=== PATIENT | female | born 1980 | race Caucasian/White ===

== ENCOUNTER 2016-10-09 22:40 | Emergency (ER) | payer BC, SELFPAY ==
[2016-10-09 23:38] LABS: ALT (SGPT) 22 U/L (0-55); AST (SGOT) 19 U/L (5-34); Albumin 4.5 g/dL (3.5-5.0); Alkaline Phosphatase 53 U/L (40-150); Anion Gap 9 mmol/L (10-20); BUN (Urea Nitrogen) 21 mg/dL (7.0-18.7); Bilirubin, Total 0.5 mg/dL (0.2-1.2); Calc. Creatinine Clearance 0 mL/min (70-130); Calcium 9.1 mg/dL (7.8-10.44); Carbon Dioxide 30 mmol/L (22-29); Chloride 106 mmol/L (98-107); Estimated GFR-MDRD 90; Globulin 2.3 g/dL (2.4-3.5); Glucose 80 mg/dL (70-105); Lipase 21 U/L (8-78); Potassium 3.4 mmol/L (3.5-5.1); Protein, Total 6.8 g/dL (6.0-8.3); Sodium 142 mmol/L (136-145)
[2016-10-09 23:39] LABS: Hemoglobin 13.5 g/dL (12.0-16.0); Lymphocytes 30 % (21-51); MDiff Complete? YES; Mean Corpuscular HGB CONC 31.8 g/dL (32.0-36.0); Mean Corpuscular Hemoglobin 28.2 pg (27.0-31.0); Mean Corpuscular Volume 88.5 fl (81.0-99.0); Mean Platelet Volume 7.7 fL (7.4-10.4); Monocytes 4 % (0-10); Neutrophil 65 % (42-75); PLT Morphology Comment Appears Adequate; Platelet Count 198 thou/uL (130-400); RBC Distribution Width 12.8 % (11.5-14.5); RBC Morphology Normal; White Blood Cell (WBC) Count 5.6 thou/uL (4.8-10.8)
[2016-10-09 23:40] LABS: CKMB 3.2 ng/mL (0-6.6); Troponin I Less than 0.010 ng/mL (< 0.028)
[2016-10-09] MEDS ORDERED: Ketorolac Tromethamine 30 MG/ML VIAL ONE (23:46)
--- NOTE | 2016-10-10 07:14 | RAD ---
PORTABLE CHEST: Date: 10/09/16 An AP portable film at 2253 hours is compared with the 10/19/15 study. FINDINGS: The heart is normal in size and the lungs are clear. No infiltrate or effusion seen. There is no vas cular congestion or edema. No pneumothorax seen. The mediastinum appears normal and the trachea is m idline. IMPRESSION: No acute thoracic findings. POS: HOME
== END 2016-10-10 00:30 | disposition home or self-care (01) ==
LOC: BURERS 22:40
DX: M94.0 Chondrocostal junction syndrome [Tietze] (principal); F31.9 Bipolar disorder, unspecified; F17.210 Nicotine dependence, cigarettes, uncomplicated; Z79.899 Other long term (current) drug therapy
CPT/HCPCS: 71010; 80053; 82553; 83690; 84484; 85025; 93005; 94760; 96374; J1885

== ENCOUNTER 2016-11-27 21:32 | Emergency (ER) | payer SELFPAY ==
[2016-11-27] MEDS ORDERED: Ketorolac Tromethamine 60 MG/2 ML VIAL ONE (22:12)
--- NOTE | 2016-11-27 22:39 | RAD ---
LEFT SHOULDER THREE VIEWS: 11/27/16 No fracture, dislocation or AC joint widening was seen. All bony structures appeared intact. IMPRESSION: No acute finding. POS: HOME
== END 2016-11-27 22:22 | disposition home or self-care (01) ==
LOC: BURERS 21:32
DX: M65.812 Other synovitis and tenosynovitis, left shoulder (principal); F31.9 Bipolar disorder, unspecified; F17.210 Nicotine dependence, cigarettes, uncomplicated
CPT/HCPCS: 96372; J1885

== ENCOUNTER 2017-09-14 14:06 | Emergency (ER) | payer SELFPAY ==
[2017-09-14] MEDS ORDERED: Adacel (T-DAP) 0.5 ML VIAL ONE (15:09)
--- NOTE | 2017-09-14 17:32 | RAD ---
LEFT HAND THREE VIEWS: 09/14/2017 There is a soft tissue defect at the tip of the third digit. No fracture or opaque foreign body was appreciated, however. The remainder of the hand and wrist appear intact. IMPRESSION: Soft tissue defect of the distal third finger. POS: HOME
== END 2017-09-14 15:15 | disposition home or self-care (01) ==
LOC: BURERS 14:06
DX: S61.213A Laceration without foreign body of left middle finger without damage to nail, initial encounter (principal); F17.210 Nicotine dependence, cigarettes, uncomplicated; F31.9 Bipolar disorder, unspecified; W22.8XXA Striking against or struck by other objects, initial encounter; Z79.899 Other long term (current) drug therapy
CPT/HCPCS: 64450; 90471; 90715

== ENCOUNTER 2018-05-15 03:40 | Emergency (ER) | payer SELFPAY ==
[2018-05-15] MEDS ORDERED: Ciprofloxacin 500 MG TAB ONE (04:12)
[2018-05-15] MEDS ORDERED: Dicyclomine 20 MG TAB ONE (04:12)
== END 2018-05-15 04:15 | disposition home or self-care (01) ==
LOC: BURERS 03:40
DX: R19.7 Diarrhea, unspecified (principal); F31.9 Bipolar disorder, unspecified; F17.210 Nicotine dependence, cigarettes, uncomplicated; Z79.899 Other long term (current) drug therapy
CPT/HCPCS: 99283

== ENCOUNTER 2018-12-24 13:32 | Emergency (ER) | payer SELFPAY ==
[2018-12-24] MEDS ORDERED: Famotidine 20 MG TAB ONE (13:45)
[2018-12-24] MEDS ORDERED: hydrOXYzine 25 MG TAB ONE (13:45)
[2018-12-24] MEDS ORDERED: Dexamethasone 4 MG TAB ONE (13:45)
== END 2018-12-24 13:52 | disposition home or self-care (01) ==
LOC: BURERS 13:32
DX: L23.7 Allergic contact dermatitis due to plants, except food (principal); F31.9 Bipolar disorder, unspecified; F17.210 Nicotine dependence, cigarettes, uncomplicated; Z79.899 Other long term (current) drug therapy
CPT/HCPCS: 99282; J8540

== ENCOUNTER 2021-04-03 13:00 | Emergency (ER) | payer OTHER, SELFPAY | END 2021-04-03 14:18 | disposition home or self-care (01) | LOC: BURERS 13:00 | DX: S50.02XA Contusion of left elbow, initial encounter (principal); M70.22 Olecranon bursitis, left elbow; F17.210 Nicotine dependence, cigarettes, uncomplicated; W22.8XXA Striking against or struck by other objects, initial encounter ==

== ENCOUNTER 2021-04-04 11:17 | Outpatient (CLI) | payer OTHER | END 2021-04-04 11:18 | disposition home or self-care (01) | LOC: BURLAB 11:17 | PROVIDERS: ATTEND Family Medicine | DX: Z02.89 Encounter for other administrative examinations (principal) | CPT/HCPCS: 99001 ==

== ENCOUNTER 2023-02-08 06:45 | Emergency (ER) | payer SELFPAY | END 2023-02-08 07:36 | disposition home or self-care (01) | LOC: BURERS 06:45 | DX: R19.7 Diarrhea, unspecified (principal); F17.210 Nicotine dependence, cigarettes, uncomplicated | CPT/HCPCS: 36416; 93005 ==

== ENCOUNTER 2023-02-22 19:08 | Emergency (ER) | payer SELFPAY ==
[2023-02-22 20:02] LABS: #Eosinphils 0.1 thou/uL (0.0-0.7); #Lymphocytes 1.2 thou/uL (1.20-3.40); #Monocytes 0.2 thou/uL (0.11-0.59); #Neutrophils 2.1 thou/uL (1.40-6.50); %Basophils 1.1 % (0.0-1.0); %Eosinophils 2.4 % (0.0-10.0); %Lymphocytes 33.3 % (21.0-51.0); %Monocytes 4.8 % (0.0-10.0); %Neutrophils 58.3 % (42.0-75.0); ALT (SGPT) 14 U/L (8-55); AST (SGOT) 12 U/L (5-34); Albumin 4.2 g/dL (3.5-5.0); Alkaline Phosphatase 51 U/L (40-110); Anion Gap 14 mmol/L (10-20); BUN (Urea Nitrogen) 13 mg/dL (7.0-18.7); Bilirubin, Total 0.7 mg/dL (0.2-1.2); Calc. Creatinine Clearance 0 mL/min (70-130); Calcium 8.9 mg/dL (7.8-10.44); Carbon Dioxide 23 mmol/L (22-29); Chloride 105 mmol/L (98-107); Estimated GFR 94; Glucose 97 mg/dL (70-105); Hematocrit 39.8 % (36.0-47.0); Hemoglobin 12.9 g/dL (12.0-16.0); Mean Corpuscular HGB CONC 32.4 g/dL (32.0-36.0); Mean Corpuscular Hemoglobin 27.2 pg (27.0-31.0); Mean Corpuscular Volume 84.1 fl (78.0-98.0); Mean Platelet Volume 7.5 fL (7.4-10.4); Platelet Count 195 10x3/uL (130-400); Potassium 3.9 mmol/L (3.5-5.1); Protein, Total 6.2 g/dL (6.0-8.3); RBC Distribution Width 11.6 % (11.5-14.5); Red Blood Cell (RBC) Count 4.74 mill/uL (4.20-5.40); Sodium 138 mmol/L (136-145); White Blood Cell (WBC) Count 3.6 10x3/uL (4.8-10.8)
[2023-02-22 20:14] LABS: Bilirubin Negative (Negative); Blood, Urine Negative (Negative); Clarity Clear (Clear); Glucose, Urine (Dipstick) Negative (Negative); Ketone, Urine Negative (Negative); Leukocyte Trace (Negative); Nitrite Negative (Negative); Protein, Urine (Dipstick) Negative (Neg-Trace); Specific Gravity, Urine 1.025 (1.005-1.030); Urobilinogen 0.2 mg/dL (Less than 2)
[2023-02-22 20:25] LABS: Bacteria/HPF None Seen HPF (None Seen); CAUTI Indications for Culture Alt mental st,lethar; RBC/HPF None Seen HPF (0-3); Squamous Epithelial 0-3 HPF (0-3); WBC/HPF 0-3 HPF (0-3)
[2023-02-22 20:26] LABS: Urine Culture Reflex No No
== END 2023-02-22 20:52 | disposition home or self-care (01) ==
LOC: BURERS 19:08
DX: R53.83 Other fatigue (principal); F17.210 Nicotine dependence, cigarettes, uncomplicated
CPT/HCPCS: 36415; 80053; 81001; 85025; 99284

== ENCOUNTER 2025-03-10 15:49 | Emergency (ER) | payer OTHER | END 2025-03-10 16:42 | disposition home or self-care (01) | LOC: BURERS 15:49 | DX: H61.21 Impacted cerumen, right ear (principal); F17.210 Nicotine dependence, cigarettes, uncomplicated | CPT/HCPCS: 99282 ==